=== PATIENT | female | born 1975 | race Caucasian/White ===

== ENCOUNTER 2018-01-24 11:29 | Emergency (ER) | payer MEDICAID, OTHER ==
[2018-01-24 12:32] VITALS: BP 142/93
--- NOTE | 2018-01-24 13:07 | UC ---
General HPI - HPI Summary HPI Summary: pt presents to the for evaluation of her cough, congestion, and feeling of malaise. 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 - History of Current Complaint Chief Complaint: UCRespiratory Stated Complaint: HEADACHE COUGH SORE THROAT Hx Obtained From: Patient Hx Last Menstrual Period: 2 wks Onset/Duration: Gradual Onset Timing: Constant Onset Severity: Moderate Current Severity: Moderate Pain Intensity: 3 Associated Signs & Symptoms: Positive: Cough - Allergy/Home Medications Allergies/Adverse Reactions: Allergies Allergy/AdvReac Type Severity Reaction Status Date / Time Penicillins Allergy Unknown Verified 01/24/18 12:20 Reaction Details Home Medications: Home Medications Hydrochlorothiazide TAB* [Hydrodiuril TAB*] 25 mg PO DAILY 01/24/18 [History Confirmed 01/24/18] Lisinopril TAB* [Prinivil TAB*] 10 mg PO DAILY 01/24/18 [History Confirmed 01/24] Omeprazole CAP* [Prilosec CAP* 20 MG] 40 mg PO QPM 01/24/18 [History Confirmed 01/24/18] amLODIPine TAB* [Norvasc 5 mg TAB*] 10 mg PO DAILY 01/24/18 [History Confirmed 01/24/18] guaiFENesin ER TAB [Mucinex*] 600 mg PO BID PRN 01/24/18 [History Confirmed 07/08] PMH/Surg Hx/FS Hx/Imm Hx Previously Healthy: Yes Cardiovascular History: Hypertension - Surgical History Surgical History: Yes Surgery Procedure, Year, and Place: , left carpal tunnel - Social History Alcohol Use: None Substance Use Type: None Smoking Status (MU): Never Smoked Tobacco Review of Systems Constitutional: Negative Skin: Negative Eyes: Negative ENT: Sinus Congestion Respiratory: Cough Cardiovascular: Negative Gastrointestinal: Negative Genitourinary: Negative Motor: Negative Neurovascular: Negative Musculoskeletal: Negative Neurological: Negative Is Patient Immunocompromised?: No All Other Systems Reviewed And Are Negative: No Physical Exam Triage Information Reviewed: No Appearance: Well-Appearing, No Pain Distress, Well-Nourished Vital Signs: Initial Vital Signs Temp 98.8 F 01/24/18 12:23 Pulse 88 01/24/18 12:23 Resp 20 01/24/18 12:23 BP 142/93 01/24/18 12:23 Pulse Ox 99 01/24/18 12:23 Vital Signs Reviewed: Yes Eyes: Positive: Conjunctiva Clear ENT Exam: Normal Neck exam: Normal Neck: Positive: Supple, Nontender Respiratory Exam: Normal Cardiovascular: Positive: RRR Abdominal Exam: Normal Abdomen Description: Positive: Nontender, Soft Bowel Sounds: Positive: Present Musculoskeletal Exam: Normal Neurological Exam: Normal Psychological Exam: Normal Skin Exam: Normal Course/Dx - Course Course Of Treatment: pt has low grade fever, sinus congestion and cough. will tx with abx and d/c home. pt given a work excuse. - Differential Dx - Multi-Symptom Provider Diagnoses: upper respiratory infection Discharge - Sign-Out/Discharge Documenting (check all that apply): Patient Departure All imaging exams completed and their final reports reviewed: No Studies - Discharge Plan Condition: Stable Disposition: HOME Prescriptions: Azithromyxin [place] (NF) [Z-[place] (Zithromax) 250 mg tabs #6] 2 tab PO .TODAY, THEN 1 DAILY #6 tab Patient Education Materials: Upper Respiratory Infection (ED) Forms: *Work Release Referrals: Curt Perez PA [Primary Care Provider] - Additional Instructions: Take the antibiotic as instructed. take tylenol and motrin for fever or pain. return if worse or any new symptoms. Please follow up with your primary care physician this week. - Billing Disposition and Condition Condition: STABLE Disposition: Home
== END 2018-01-24 13:16 | disposition home or self-care (01) ==
LOC: UCCORT 11:29
DX: J06.9 Acute upper respiratory infection, unspecified (principal); I10 Essential (primary) hypertension; Z88.0 Allergy status to penicillin; Z79.899 Other long term (current) drug therapy
CPT/HCPCS: 99212; G0463